=== PATIENT | male | born 1940 | race Caucasian/White ===

== ENCOUNTER 2021-06-17 09:34 | Inpatient (IN) ==
[2021-06-17] MEDS ORDERED: cefTRIAXone 1,000 MG in SODIUM CHLORIDE 0.9% 100 ML IV STA (17:16)
[2021-06-17] MEDS ORDERED: ONDANSETRON 4 MG/2 ML VIAL IV STA (17:20)
[2021-06-17] MEDS ORDERED: METOPROLOL TARTRATE 5 MG/5 ML VIAL IV STA (17:21)
[2021-06-17] MEDS ORDERED: SODIUM CHLORIDE 0.9% 500 ML IV STA (17:30)
[2021-06-17 18:48] LABS: Basophils % 0.3 % (0.0-0.8); Hematocrit 44.4 VOL% (42.0-52.0); Hemoglobin 14.9 GM/DL (14.0-18.0); Lymphocytes # 0.2 10*3/uL (1.4-4.0); Lymphocytes % 2.1 % (21.2-54.2); Mean Corpuscular HGB Conc 33.6 GM/DL (32-36); Mean Corpuscular Volume 96.9 FL (87-102); Mean Platelet Volume 11.1 FL (9.6-12.0); Monocytes % 10.9 % (1.7-12.7); Neutrophils % 86.1 % (38.7-73.9); Platelet Count 124 T/CUMM (130-400); Red Blood Count 4.58 MC/CUMM (3.8-5.5); Red Cell Distribution Width 13.1 % (9.3-17.3); White Blood Count 7.8 T/CUMM (4-12)
[2021-06-17 19:13] LABS: Alanine Aminotransferase 19 U/L (16-61); Albumin 3.2 G/DL (3.4-5.0); Alkaline Phosphatase 64 U/L (45-117); Aspartate Amino Transferase 18 U/L (0-37); Blood Urea Nitrogen 19 MG/DL (7-18); Calcium 8.3 MG/DL (8.5-10.1); Carbon Dioxide 24 MMOL/L (21-32); Estimated Glom Filtration Rate 73 ML/MIN; Glucose 139 MG/DL (74-106); Osmolality,Calculated 271.2 MOS/KG (273-304); Potassium 3.7 MMOL/L (3.5-5.1); Sodium 134 MMOL/L (136-145); Total Protein 7.2 G/DL (6.4-8.2)
[2021-06-17] MEDS ORDERED: SODIUM CHLORIDE 0.9% 1,000 ML IV STA (19:22)
[2021-06-17] MEDS ORDERED: AZITHROMYCIN INJ 500 MG in SODIUM CHLORIDE 0.9% 250 ML IV STA (19:22)
[2021-06-17] MEDS ORDERED: ONDANSETRON 4 MG TABLET PO PRN (19:38)
[2021-06-17] MEDS ORDERED: diphenhydrAMINE 50 MG/1 ML VIAL IV PRN ×2 (19:38)
[2021-06-17] MEDS ORDERED: diphenhydrAMINE CAP 50 MG CAPSULE PO PRN (19:38)
[2021-06-17] MEDS ORDERED: MECLIZINE 25 MG TABLET PO PRN (19:38)
[2021-06-17] MEDS ORDERED: diphenhydrAMINE CAP 25 MG CAPSULE PO PRN (19:38)
[2021-06-17] MEDS ORDERED: methylPREDNISolone SOD SUC 125 MG/2 ML VIAL IV PRN (19:38)
[2021-06-17] MEDS ORDERED: CASIRIVIMAB/IMDEVIMAB 1,200 MG in SODIUM CHLORIDE 0.9% 100 ML IV ONE (19:38)
[2021-06-17] MEDS ORDERED: ACETAMINOPHEN 325 MG TABLET PO PRN ×2 (19:38→22:30)
[2021-06-17] MEDS ORDERED: methylPREDNISolone SOD SUC 125 MG/2 ML VIAL IM PRN (19:38)
[2021-06-17] MEDS ORDERED: ONDANSETRON 4 MG/2 ML VIAL IV PRN ×2 (19:38→22:30)
[2021-06-17] MEDS ORDERED: PROMETHAZINE INJ 12.5 MG in SODIUM CHLORIDE 0.9% 50 ML IV STA (19:47)
[2021-06-17] MEDS ORDERED: DEXAMETHASONE 4 MG/1 ML VIAL IV STA (19:59)
[2021-06-17 20:43] LABS: ABG Base Excess -0.1 MMOL/L (-2.5-2.5); ABG HCO3 24.2 MMOL/L (20-26); ABG PCO2 38.1 MM HG (35-48); ABG PH 7.412 (7.35-7.45); ABG TCO2 21.1 MMOL/L (23-27); Allen Test Positive
[2021-06-17] MEDS ORDERED: ENOXAPARIN 30 MG/0.3 ML SYRINGE SUBCUT STA (20:56)
[2021-06-17] MEDS ORDERED: ENOXAPARIN 100 MG/ML SYRINGE SUBCUT STA (20:59)
[2021-06-17] MEDS ORDERED: DEXAMETHASONE 10 MG/1 ML VIAL ONE (22:21)
[2021-06-17] MEDS ORDERED: PROMETHAZINE 25 MG/1 ML VIAL ONE (22:24)
[2021-06-18] MEDS ORDERED: DOCUSATE SODIUM 100 MG CAPSULE PO SCH (09:00)
[2021-06-18] MEDS ORDERED: PANTOPRAZOLE 40 MG TABLET PO SCH (09:00)
[2021-06-18] MEDS ORDERED: ONDANSETRON 4 MG/2 ML VIAL IV PRN (09:27)
[2021-06-18] MEDS ORDERED: ACETAMINOPHEN 325 MG TABLET PO PRN (09:27)
[2021-06-18] MEDS: SODIUM CHLORIDE 0.45% 1,000 ML IV SCH ×3 (10:30→20:30)
[2021-06-18 11:22] LABS: Bilirubin,Urine Negative (Negative); Blood, Urine Moderate mg/dL (Negative); Glucose,Urine (UA) Negative (Negative); Ketones,Urine 5 mg/dL (Negative); Mucus,Urine Occasional /LPF (Occasional); Nitrite,Urine Negative (Negative); Protein,Urine 30 MG/DL; RBC,Urine 7 /HPF (0-4); Urine Appearance CLEAR (Clear); Urine Color Amber (Yellow); Urine Specific Gravity 1.028 (1.001-1.035)
[2021-06-18] MEDS: cefTRIAXone 1,000 MG in SODIUM CHLORIDE 0.9% 100 ML IV SCH (16:30)
[2021-06-18 17:43] VITALS: BP 133/72
[2021-06-18] MEDS: APIXABAN 5 MG TABLET PO SCH (21:20)
[2021-06-18] MEDS: DEXAMETHASONE 4 MG TABLET PO SCH (21:20)
[2021-06-18] MEDS: DOCUSATE SODIUM 100 MG CAPSULE PO SCH (21:20)
[2021-06-19] MEDS: SODIUM CHLORIDE 0.45% 1,000 ML IV SCH ×2 (01:30→08:23)
[2021-06-19 06:30] LABS: Hematocrit 42.6 VOL% (42.0-52.0); Hemoglobin 14.1 GM/DL (14.0-18.0); Immature Granulocytes % 0.6 %; Immature Granulocytes Absolute 0.04 #; Lymphocytes # 0.5 10*3/uL (1.4-4.0); Mean Corpuscular HGB Conc 33.1 GM/DL (32-36); Mean Corpuscular Volume 97.5 FL (87-102); Mean Platelet Volume 11.1 FL (9.6-12.0); Monocytes % 10.5 % (1.7-12.7); Neutrophils % 81.9 % (38.7-73.9); Platelet Count 121 T/CUMM (130-400); Red Blood Count 4.37 MC/CUMM (3.8-5.5); White Blood Count 6.7 T/CUMM (4-12)
[2021-06-19] MEDS: DOCUSATE SODIUM 100 MG CAPSULE PO SCH (08:21)
[2021-06-19] MEDS: DEXAMETHASONE 4 MG TABLET PO SCH (08:22)
[2021-06-19] MEDS: APIXABAN 5 MG TABLET PO SCH (08:22)
[2021-06-19] MEDS ORDERED: CYANOCOBALAMIN COBAMAMIDE SL SCH (09:00)
[2021-06-19] MEDS ORDERED: MULTIVITAMIN (CENTRUM) TABLET PO SCH (09:00)
[2021-06-19] MEDS ORDERED: AZITHROMYCIN 250 MG TABLET PO SCH (09:00)
[2021-06-19] MEDS ORDERED: TAMSULOSIN 0.4 MG CAPSULE PO SCH (09:00)
[2021-06-19] MEDS ORDERED: IVERMECTIN 3 MG TABLET PO SCH (09:00)
[2021-06-19] MEDS ORDERED: ASPIRIN EC 81 MG TABLET PO SCH (09:00)
[2021-06-19] MEDS ORDERED: [UNRECOGNIZED DRUG - OTHER] SL SCH (09:00)
[2021-06-19] MEDS ORDERED: PANTOPRAZOLE 40 MG TABLET PO SCH (09:00)
[2021-06-19] MEDS: cefTRIAXone 1,000 MG in SODIUM CHLORIDE 0.9% 100 ML IV SCH (15:16)
== END 2021-06-19 17:15 | disposition home or self-care (01) | DRG 177 ==
LOC: N.ED 09:34 → N.EDINP 22:26 → N.CC 06-18 17:50
PROVIDERS: ADMIT Internal Medicine; ATTEND Internal Medicine

== ENCOUNTER 2021-11-24 13:22 | Inpatient (IN) ==
[2021-11-24 15:58] LABS: Basophils % 0.1 % (0.0-0.8); Eosinophils % 0.1 % (0.00-10.9); Hematocrit 47.2 VOL% (42.0-52.0); Hemoglobin 15.8 GM/DL (14.0-18.0); Immature Granulocytes % 0.6 %; Immature Granulocytes Absolute 0.06 #; Lymphocytes # 0.9 10*3/uL (1.4-4.0); Lymphocytes % 8.4 % (21.2-54.2); Mean Corpuscular HGB Conc 33.5 GM/DL (32-36); Mean Corpuscular Volume 95.4 FL (87-102); Mean Platelet Volume 10.4 FL (9.6-12.0); Monocytes % 9.8 % (1.7-12.7); Platelet Count 125 T/CUMM (130-400); Red Blood Count 4.95 MC/CUMM (3.8-5.5); Red Cell Distribution Width 13.2 % (9.3-17.3); White Blood Count 10.6 T/CUMM (4-12)
[2021-11-24] MEDS ORDERED: ALUM/MAG/SIMETH/LIDO VISC 1:1 30 ML BOTTLE PO STA (16:02)
[2021-11-24 16:24] LABS: Calcium 8.4 MG/DL (8.5-10.1); Osmolality,Calculated 278.5 MOS/KG (273-304); Potassium 3.9 MMOL/L (3.5-5.1)
[2021-11-24 16:25] LABS: Albumin 3.4 G/DL (3.4-5.0); Bilirubin,Total 11.2 MG/DL (0.20-1.00); Osmolality,Calculated 274.8 MOS/KG (273-304); Potassium 3.8 MMOL/L (3.5-5.1)
[2021-11-24] MEDS ORDERED: ONDANSETRON 4 MG/2 ML VIAL IV STA (19:25)
[2021-11-24] MEDS ORDERED: SODIUM CHLORIDE 0.9% 500 ML IV STA (19:25)
[2021-11-24] MEDS ORDERED: PIPERACILLIN/TAZOBACTAM 3,375 MG in SODIUM CHLORIDE 0.9% 100 ML IV STA (19:27)
[2021-11-24] MEDS ORDERED: PANTOPRAZOLE 40 MG VIAL IV STA (19:27)
[2021-11-24] MEDS ORDERED: ACETAMINOPHEN 325 MG TABLET PO PRN (19:32)
[2021-11-24] MEDS ORDERED: ONDANSETRON 4 MG/2 ML VIAL IV PRN (19:32)
[2021-11-24] MEDS ORDERED: HYDROmorphone 1 MG/1 ML SYRINGE IV PRN (19:32)
[2021-11-24] MEDS: DOCUSATE SODIUM 100 MG CAPSULE PO SCH (21:20)
[2021-11-24] MEDS: SODIUM CHLORIDE 0.9% 1,000 ML IV SCH (23:20)
[2021-11-24] MEDS: ENOXAPARIN 30 MG/0.3 ML SYRINGE SUBCUT SCH (23:21)
[2021-11-25 05:46] LABS: Albumin 3.1 G/DL (3.4-5.0); Bilirubin,Total 9.7 MG/DL (0.20-1.00); Calcium 8.2 MG/DL (8.5-10.1); Osmolality,Calculated 275.7 MOS/KG (273-304); Potassium 3.6 MMOL/L (3.5-5.1); Total Protein 6.2 G/DL (6.4-8.2)
[2021-11-25] MEDS ORDERED: PANTOPRAZOLE 40 MG TABLET PO SCH (09:00)
[2021-11-25] MEDS: METOPROLOL SUCCINATE XL 25 MG TABLET PO SCH (09:13)
[2021-11-25] MEDS: LEVOTHYROXINE 50 MCG TABLET PO SCH (09:13)
[2021-11-25] MEDS: TAMSULOSIN 0.4 MG CAPSULE PO SCH (09:13)
[2021-11-25] MEDS: DOCUSATE SODIUM 100 MG CAPSULE PO SCH ×2 (09:13→21:16)
[2021-11-25] MEDS: SODIUM CHLORIDE 0.9% 1,000 ML IV SCH ×2 (09:14→18:47)
[2021-11-25] MEDS: PANTOPRAZOLE 40 MG VIAL IV SCH (09:14)
[2021-11-25] MEDS: PIPERACILLIN/TAZOBACTAM 3,375 MG in SODIUM CHLORIDE 0.9% 100 ML IV SCH ×2 (10:45→18:30)
[2021-11-25] MEDS: ENOXAPARIN 30 MG/0.3 ML SYRINGE SUBCUT SCH (23:16)
[2021-11-26] MEDS: PIPERACILLIN/TAZOBACTAM 3,375 MG in SODIUM CHLORIDE 0.9% 100 ML IV SCH ×3 (03:58→17:35)
[2021-11-26] MEDS: SODIUM CHLORIDE 0.9% 1,000 ML IV SCH ×3 (04:00→23:30)
[2021-11-26 08:39] LABS: Basophils % 0.6 % (0.0-0.8); Eosinophils # 0.1 10*3/uL (0.0-0.87); Eosinophils % 1.1 % (0.00-10.9); Hematocrit 42.9 VOL% (42.0-52.0); Hemoglobin 14.3 GM/DL (14.0-18.0); Immature Granulocytes % 0.6 %; Immature Granulocytes Absolute 0.03 #; Lymphocytes # 0.9 10*3/uL (1.4-4.0); Lymphocytes % 16.5 % (21.2-54.2); Mean Corpuscular HGB Conc 33.3 GM/DL (32-36); Mean Corpuscular Volume 97.3 FL (87-102); Mean Platelet Volume 10.7 FL (9.6-12.0); Monocytes # 1.1 10*3/uL (0.11-0.8); Monocytes % 19.5 % (1.7-12.7); Neutrophils % 61.7 % (38.7-73.9); Platelet Count 125 T/CUMM (130-400); Red Blood Count 4.41 MC/CUMM (3.8-5.5); Red Cell Distribution Width 13.2 % (9.3-17.3); White Blood Count 5.4 T/CUMM (4-12)
[2021-11-26] MEDS: METOPROLOL SUCCINATE XL 25 MG TABLET PO SCH (08:54)
[2021-11-26] MEDS: DOCUSATE SODIUM 100 MG CAPSULE PO SCH ×2 (08:54→20:59)
[2021-11-26] MEDS: PANTOPRAZOLE 40 MG VIAL IV SCH (08:54)
[2021-11-26] MEDS: LEVOTHYROXINE 50 MCG TABLET PO SCH (08:54)
[2021-11-26] MEDS: TAMSULOSIN 0.4 MG CAPSULE PO SCH (08:54)
[2021-11-26 08:58] LABS: Albumin 2.7 G/DL (3.4-5.0); Bilirubin,Total 7.9 MG/DL (0.20-1.00); Calcium 7.9 MG/DL (8.5-10.1); Osmolality,Calculated 281.3 MOS/KG (273-304); Potassium 3.5 MMOL/L (3.5-5.1); Total Protein 5.9 G/DL (6.4-8.2)
[2021-11-26 08:59] LABS: Band Neutrophils 2 % (0-10); Eosinophils 2 % (0-10); Lymphocytes 18 % (20-55); Total Cells Counted 100
[2021-11-26 09:00] LABS: Platelet Estimate Adequate
[2021-11-26] MEDS: ENOXAPARIN 30 MG/0.3 ML SYRINGE SUBCUT SCH (21:00)
[2021-11-27] MEDS: PIPERACILLIN/TAZOBACTAM 3,375 MG in SODIUM CHLORIDE 0.9% 100 ML IV SCH ×3 (03:34→18:12)
[2021-11-27] MEDS: LEVOTHYROXINE 50 MCG TABLET PO SCH (06:27)
[2021-11-27 06:35] LABS: Basophils % 0.7 % (0.0-0.8); Eosinophils # 0.2 10*3/uL (0.0-0.87); Eosinophils % 4.6 % (0.00-10.9); Hematocrit 41.8 VOL% (42.0-52.0); Hemoglobin 13.9 GM/DL (14.0-18.0); Immature Granulocytes % 0.2 %; Immature Granulocytes Absolute 0.01 #; Lymphocytes % 22.6 % (21.2-54.2); Mean Corpuscular HGB Conc 33.3 GM/DL (32-36); Mean Corpuscular Volume 96.5 FL (87-102); Monocytes # 0.6 10*3/uL (0.11-0.8); Monocytes % 14.6 % (1.7-12.7); Neutrophils % 57.3 % (38.7-73.9); Platelet Count 131 T/CUMM (130-400); Red Blood Count 4.33 MC/CUMM (3.8-5.5); Red Cell Distribution Width 13.3 % (9.3-17.3); White Blood Count 4.4 T/CUMM (4-12)
[2021-11-27 07:04] LABS: Albumin 2.5 G/DL (3.4-5.0); Bilirubin,Total 5.1 MG/DL (0.20-1.00); Potassium 3.6 MMOL/L (3.5-5.1); Total Protein 5.5 G/DL (6.4-8.2)
[2021-11-27] MEDS: TAMSULOSIN 0.4 MG CAPSULE PO SCH (09:54)
[2021-11-27] MEDS: PANTOPRAZOLE 40 MG VIAL IV SCH (09:54)
[2021-11-27] MEDS: METOPROLOL SUCCINATE XL 25 MG TABLET PO SCH (09:54)
[2021-11-27] MEDS: DOCUSATE SODIUM 100 MG CAPSULE PO SCH ×3 (09:54→20:57)
[2021-11-27] MEDS: SODIUM CHLORIDE 0.9% 1,000 ML IV SCH (15:59)
[2021-11-28] MEDS: SODIUM CHLORIDE 0.9% 1,000 ML IV SCH ×2 (02:12→16:15)
[2021-11-28] MEDS: PIPERACILLIN/TAZOBACTAM 3,375 MG in SODIUM CHLORIDE 0.9% 100 ML IV SCH ×3 (03:11→18:47)
[2021-11-28 04:51] LABS: Basophils % 0.6 % (0.0-0.8); Eosinophils # 0.3 10*3/uL (0.0-0.87); Eosinophils % 4.9 % (0.00-10.9); Hematocrit 41.5 VOL% (42.0-52.0); Hemoglobin 13.8 GM/DL (14.0-18.0); Immature Granulocytes % 0.2 %; Immature Granulocytes Absolute 0.01 #; Lymphocytes # 1.2 10*3/uL (1.4-4.0); Lymphocytes % 21.7 % (21.2-54.2); Mean Corpuscular HGB Conc 33.3 GM/DL (32-36); Mean Corpuscular Volume 95.6 FL (87-102); Mean Platelet Volume 10.5 FL (9.6-12.0); Monocytes # 0.7 10*3/uL (0.11-0.8); Neutrophils % 59.6 % (38.7-73.9); Platelet Count 148 T/CUMM (130-400); Red Blood Count 4.34 MC/CUMM (3.8-5.5); White Blood Count 5.3 T/CUMM (4-12)
[2021-11-28 05:14] LABS: Albumin 2.4 G/DL (3.4-5.0); Bilirubin,Total 4.3 MG/DL (0.20-1.00); Calcium 7.9 MG/DL (8.5-10.1); Osmolality,Calculated 279.1 MOS/KG (273-304); Potassium 3.3 MMOL/L (3.5-5.1); Total Protein 5.5 G/DL (6.4-8.2)
[2021-11-28] MEDS: LEVOTHYROXINE 50 MCG TABLET PO SCH (06:26)
[2021-11-28 07:10] LABS: INR 1.1; PT Patient Result 12.1 SECS (10.5-12.0)
[2021-11-28] MEDS ORDERED: INDOMETHACIN SUPP 50 MG SUPP RECTAL ONE (07:20)
[2021-11-28] MEDS: PANTOPRAZOLE 40 MG VIAL IV SCH (08:05)
[2021-11-28] MEDS: DOCUSATE SODIUM 100 MG CAPSULE PO SCH ×2 (08:05→20:42)
[2021-11-28] MEDS: TAMSULOSIN 0.4 MG CAPSULE PO SCH (08:05)
[2021-11-28] MEDS: METOPROLOL SUCCINATE XL 25 MG TABLET PO SCH (08:05)
[2021-11-28] MEDS ORDERED: LACTATED RINGERS 1,000 ML IV SCH (10:00)
[2021-11-28] MEDS ORDERED: LIDOCAINE 2% 5 ML VIAL ONE (13:10)
[2021-11-28] MEDS ORDERED: fentaNYL 100 MCG/2 ML VIAL ONE (13:10)
[2021-11-28] MEDS ORDERED: SUCCINYLCHOLINE 200 MG/10 ML VIAL ONE (13:10)
[2021-11-28] MEDS ORDERED: ROCURONIUM 50 MG/5 ML VIAL IV ONE (13:10)
[2021-11-28] MEDS ORDERED: ONDANSETRON 4 MG/2 ML VIAL ONE (13:10)
[2021-11-28] MEDS ORDERED: propofoL 200 MG/20 ML VIAL IV ONE (13:10)
[2021-11-28] MEDS: INDOMETHACIN SUPP 50 MG SUPP RECTAL ONE ×2 (13:30→14:42)
[2021-11-28] MEDS ORDERED: SEVOFLURANE 1 UNIT/15 MINUTE INH ONE (14:26)
[2021-11-28] MEDS: POTASSIUM CHLORIDE RIDER 10 MEQ/100 ML PREMIX IV PRN (23:46)
[2021-11-29] MEDS: POTASSIUM CHLORIDE RIDER 10 MEQ/100 ML PREMIX IV PRN ×2 (01:24→03:08)
[2021-11-29] MEDS: SODIUM CHLORIDE 0.9% 1,000 ML IV SCH ×2 (01:25→14:40)
[2021-11-29] MEDS: PIPERACILLIN/TAZOBACTAM 3,375 MG in SODIUM CHLORIDE 0.9% 100 ML IV SCH ×3 (01:30→17:41)
[2021-11-29 05:05] LABS: Basophils % 0.4 % (0.0-0.8); Eosinophils # 0.3 10*3/uL (0.0-0.87); Eosinophils % 5.7 % (0.00-10.9); Hematocrit 41.1 VOL% (42.0-52.0); Hemoglobin 13.5 GM/DL (14.0-18.0); Immature Granulocytes % 0.7 %; Immature Granulocytes Absolute 0.03 #; Lymphocytes # 1.2 10*3/uL (1.4-4.0); Lymphocytes % 25.8 % (21.2-54.2); Mean Corpuscular HGB Conc 32.8 GM/DL (32-36); Mean Corpuscular Volume 96.5 FL (87-102); Mean Platelet Volume 10.7 FL (9.6-12.0); Monocytes # 0.6 10*3/uL (0.11-0.8); Monocytes % 13.9 % (1.7-12.7); Neutrophils % 53.5 % (38.7-73.9); Platelet Count 148 T/CUMM (130-400); Red Blood Count 4.26 MC/CUMM (3.8-5.5); Red Cell Distribution Width 13.1 % (9.3-17.3); White Blood Count 4.5 T/CUMM (4-12)
[2021-11-29 05:22] LABS: Albumin 2.3 G/DL (3.4-5.0); Bilirubin,Total 3.8 MG/DL (0.20-1.00); Calcium 7.8 MG/DL (8.5-10.1); Potassium 4.2 MMOL/L (3.5-5.1); Total Protein 5.4 G/DL (6.4-8.2)
[2021-11-29] MEDS: LEVOTHYROXINE 50 MCG TABLET PO SCH (06:07)
[2021-11-29] MEDS: DOCUSATE SODIUM 100 MG CAPSULE PO SCH ×2 (08:40→21:17)
[2021-11-29] MEDS: PANTOPRAZOLE 40 MG VIAL IV SCH (08:40)
[2021-11-29] MEDS: METOPROLOL SUCCINATE XL 25 MG TABLET PO SCH (08:40)
[2021-11-29] MEDS: TAMSULOSIN 0.4 MG CAPSULE PO SCH (08:40)
[2021-11-29] MEDS ORDERED: POTASSIUM CHLORIDE 20 MEQ TABLET PO SCH (09:00)
[2021-11-29] MEDS ORDERED: TISSUE ADHESIVE 1 EACH APPLICATOR TOP ONE (10:02)
[2021-11-29] MEDS ORDERED: fentaNYL 100 MCG/2 ML VIAL ONE ×2 (10:08→11:58)
[2021-11-29] MEDS ORDERED: propofoL 200 MG/20 ML VIAL IV ONE (10:10)
[2021-11-29] MEDS ORDERED: ONDANSETRON 4 MG/2 ML VIAL ONE (10:10)
[2021-11-29] MEDS ORDERED: LIDOCAINE 2% 5 ML VIAL ONE (10:10)
[2021-11-29] MEDS ORDERED: ROCURONIUM 50 MG/5 ML VIAL IV ONE (10:10)
[2021-11-29] MEDS ORDERED: PHENYLEPHRINE 1 MG/10 ML SYRINGE IV ONE (11:48)
[2021-11-29] MEDS ORDERED: diphenhydrAMINE 50 MG/1 ML VIAL IV PRN (12:17)
[2021-11-29] MEDS ORDERED: HYDROmorphone 1 MG/1 ML SYRINGE IV PRN (12:17)
[2021-11-29] MEDS ORDERED: ONDANSETRON 4 MG/2 ML VIAL IV PRN (12:17)
[2021-11-29] MEDS ORDERED: MEPERIDINE 25 MG/1 ML VIAL IV PRN (12:17)
[2021-11-29] MEDS ORDERED: PROMETHAZINE INJ 25 MG in SODIUM CHLORIDE 0.9% 50 ML IV PRN (12:17)
[2021-11-29] MEDS ORDERED: ESMOLOL 100 MG/10 ML VIAL IV ONE (12:29)
[2021-11-29] MEDS ORDERED: SEVOFLURANE 1 UNIT/15 MINUTE INH ONE ×4 (12:52→13:46)
[2021-11-29] MEDS ORDERED: NEOSTIGMINE 10 MG/10 ML VIAL ONE (13:00)
[2021-11-29] MEDS ORDERED: GLYCOPYRROLATE 0.4 MG/2 ML VIAL ONE (13:00)
[2021-11-29] MEDS ORDERED: LACTATED RINGERS 1,000 ML IV ONE (13:42)
[2021-11-29] MEDS: ENOXAPARIN 30 MG/0.3 ML SYRINGE SUBCUT SCH (21:17)
[2021-11-30] MEDS: PIPERACILLIN/TAZOBACTAM 3,375 MG in SODIUM CHLORIDE 0.9% 100 ML IV SCH ×3 (01:43→17:45)
[2021-11-30 05:35] LABS: Basophils % 0.1 % (0.0-0.8); Eosinophils % 0.1 % (0.00-10.9); Hematocrit 43.1 VOL% (42.0-52.0); Hemoglobin 14.4 GM/DL (14.0-18.0); Immature Granulocytes % 0.5 %; Immature Granulocytes Absolute 0.05 #; Lymphocytes % 11.1 % (21.2-54.2); Mean Corpuscular HGB Conc 33.4 GM/DL (32-36); Mean Corpuscular Volume 94.9 FL (87-102); Mean Platelet Volume 10.1 FL (9.6-12.0); Monocytes # 1.1 10*3/uL (0.11-0.8); Monocytes % 11.7 % (1.7-12.7); Neutrophils % 76.5 % (38.7-73.9); Platelet Count 189 T/CUMM (130-400); Red Blood Count 4.54 MC/CUMM (3.8-5.5); Red Cell Distribution Width 13.2 % (9.3-17.3); White Blood Count 9.2 T/CUMM (4-12)
[2021-11-30 05:51] LABS: Albumin 2.5 G/DL (3.4-5.0); Bilirubin,Total 2.9 MG/DL (0.20-1.00); Calcium 7.7 MG/DL (8.5-10.1); Osmolality,Calculated 277.5 MOS/KG (273-304); Potassium 3.5 MMOL/L (3.5-5.1); Total Protein 5.6 G/DL (6.4-8.2)
[2021-11-30] MEDS: LEVOTHYROXINE 50 MCG TABLET PO SCH (05:52)
[2021-11-30] MEDS ORDERED: MAGNESIUM SULF RIDER 2 GM/50 ML PREMIX IV ONE (06:15)
[2021-11-30] MEDS: SODIUM CHLORIDE 0.9% 1,000 ML IV SCH ×3 (07:34→15:09)
[2021-11-30] MEDS: PANTOPRAZOLE 40 MG VIAL IV SCH (08:13)
[2021-11-30] MEDS: TAMSULOSIN 0.4 MG CAPSULE PO SCH (08:13)
[2021-11-30] MEDS: METOPROLOL SUCCINATE XL 25 MG TABLET PO SCH (08:13)
[2021-11-30] MEDS: DOCUSATE SODIUM 100 MG CAPSULE PO SCH ×2 (08:13→21:43)
[2021-11-30] MEDS ORDERED: MAGNESIUM HYDROXIDE SUSP 30 ML UDCUP PO PRN (13:27)
[2021-11-30] MEDS: ENOXAPARIN 30 MG/0.3 ML SYRINGE SUBCUT SCH (21:43)
[2021-12-01] MEDS: PIPERACILLIN/TAZOBACTAM 3,375 MG in SODIUM CHLORIDE 0.9% 100 ML IV SCH ×3 (01:56→18:03)
[2021-12-01 04:40] LABS: Basophils % 0.1 % (0.0-0.8); Eosinophils % 0.2 % (0.00-10.9); Hemoglobin 13.4 GM/DL (14.0-18.0); Immature Granulocytes % 0.7 %; Immature Granulocytes Absolute 0.07 #; Lymphocytes # 0.9 10*3/uL (1.4-4.0); Lymphocytes % 8.7 % (21.2-54.2); Mean Corpuscular HGB Conc 33.5 GM/DL (32-36); Mean Corpuscular Volume 95.7 FL (87-102); Mean Platelet Volume 10.3 FL (9.6-12.0); Monocytes % 10.1 % (1.7-12.7); Neutrophils % 80.2 % (38.7-73.9); Platelet Count 188 T/CUMM (130-400); Red Blood Count 4.18 MC/CUMM (3.8-5.5); Red Cell Distribution Width 13.5 % (9.3-17.3); White Blood Count 9.8 T/CUMM (4-12)
[2021-12-01 05:03] LABS: Albumin 2.3 G/DL (3.4-5.0); Bilirubin,Total 2.1 MG/DL (0.20-1.00); Calcium 7.8 MG/DL (8.5-10.1); Osmolality,Calculated 278.5 MOS/KG (273-304); Potassium 3.5 MMOL/L (3.5-5.1); Total Protein 5.4 G/DL (6.4-8.2)
[2021-12-01] MEDS: LEVOTHYROXINE 50 MCG TABLET PO SCH (05:30)
[2021-12-01] MEDS: SODIUM CHLORIDE 0.9% 1,000 ML IV SCH (07:45)
[2021-12-01] MEDS: PANTOPRAZOLE 40 MG TABLET PO SCH (08:22)
[2021-12-01] MEDS: TAMSULOSIN 0.4 MG CAPSULE PO SCH (08:22)
[2021-12-01] MEDS: DOCUSATE SODIUM 100 MG CAPSULE PO SCH ×2 (08:22→20:48)
[2021-12-01] MEDS: METOPROLOL SUCCINATE XL 25 MG TABLET PO SCH (08:22)
[2021-12-01] MEDS: ENOXAPARIN 30 MG/0.3 ML SYRINGE SUBCUT SCH (21:10)
[2021-12-02] MEDS: SODIUM CHLORIDE 0.9% 1,000 ML IV SCH ×3 (01:03→10:06)
[2021-12-02] MEDS: PIPERACILLIN/TAZOBACTAM 3,375 MG in SODIUM CHLORIDE 0.9% 100 ML IV SCH ×3 (02:00→18:13)
[2021-12-02 05:40] LABS: Basophils % 0.2 % (0.0-0.8); Eosinophils # 0.2 10*3/uL (0.0-0.87); Eosinophils % 2.3 % (0.00-10.9); Hematocrit 38.2 VOL% (42.0-52.0); Hemoglobin 12.5 GM/DL (14.0-18.0); Immature Granulocytes % 0.6 %; Immature Granulocytes Absolute 0.05 #; Lymphocytes # 1.2 10*3/uL (1.4-4.0); Lymphocytes % 14.7 % (21.2-54.2); Mean Corpuscular HGB Conc 32.7 GM/DL (32-36); Mean Corpuscular Volume 97.2 FL (87-102); Mean Platelet Volume 10.5 FL (9.6-12.0); Monocytes # 0.8 10*3/uL (0.11-0.8); Neutrophils % 72.2 % (38.7-73.9); Platelet Count 207 T/CUMM (130-400); Red Blood Count 3.93 MC/CUMM (3.8-5.5); Red Cell Distribution Width 13.5 % (9.3-17.3); White Blood Count 8.4 T/CUMM (4-12)
[2021-12-02 05:59] LABS: Bilirubin,Total 2.1 MG/DL (0.20-1.00); Calcium 7.8 MG/DL (8.5-10.1); Potassium 3.7 MMOL/L (3.5-5.1); Total Protein 5.2 G/DL (6.4-8.2)
[2021-12-02] MEDS: LEVOTHYROXINE 50 MCG TABLET PO SCH (06:00)
[2021-12-02 07:39] LABS: Platelet Estimate Normal
[2021-12-02] MEDS: TAMSULOSIN 0.4 MG CAPSULE PO SCH (08:29)
[2021-12-02] MEDS: METOPROLOL SUCCINATE XL 25 MG TABLET PO SCH (08:29)
[2021-12-02] MEDS: PANTOPRAZOLE 40 MG TABLET PO SCH (08:30)
[2021-12-02] MEDS: DOCUSATE SODIUM 100 MG CAPSULE PO SCH ×2 (08:30→20:55)
[2021-12-02] MEDS: BENZONATATE 100 MG CAPSULE PO SCH ×2 (12:43→20:55)
[2021-12-02] MEDS: ALBUTEROL/IPRATROPIUM 3 ML NEB RESP TX SCH ×4 (12:53→22:30)
[2021-12-02] MEDS: ENOXAPARIN 30 MG/0.3 ML SYRINGE SUBCUT SCH (21:17)
[2021-12-03] MEDS: PIPERACILLIN/TAZOBACTAM 3,375 MG in SODIUM CHLORIDE 0.9% 100 ML IV SCH ×3 (01:30→20:45)
[2021-12-03] MEDS: ALBUTEROL/IPRATROPIUM 3 ML NEB RESP TX SCH ×5 (03:30→19:49)
[2021-12-03 05:35] LABS: Basophils % 0.3 % (0.0-0.8); Eosinophils # 0.1 10*3/uL (0.0-0.87); Eosinophils % 1.2 % (0.00-10.9); Hematocrit 37.5 VOL% (42.0-52.0); Hemoglobin 12.2 GM/DL (14.0-18.0); Immature Granulocytes % 0.7 %; Immature Granulocytes Absolute 0.05 #; Lymphocytes # 1.4 10*3/uL (1.4-4.0); Lymphocytes % 19.1 % (21.2-54.2); Mean Corpuscular HGB Conc 32.5 GM/DL (32-36); Mean Corpuscular Volume 96.4 FL (87-102); Mean Platelet Volume 10.3 FL (9.6-12.0); Monocytes # 0.7 10*3/uL (0.11-0.8); Monocytes % 9.1 % (1.7-12.7); Neutrophils % 69.6 % (38.7-73.9); Platelet Count 241 T/CUMM (130-400); Red Blood Count 3.89 MC/CUMM (3.8-5.5); Red Cell Distribution Width 13.6 % (9.3-17.3); White Blood Count 7.5 T/CUMM (4-12)
[2021-12-03 06:02] LABS: Albumin 2.1 G/DL (3.4-5.0); Bilirubin,Total 1.9 MG/DL (0.20-1.00); Calcium 7.9 MG/DL (8.5-10.1); Osmolality,Calculated 284.8 MOS/KG (273-304); Potassium 2.9 MMOL/L (3.5-5.1); Total Protein 5.4 G/DL (6.4-8.2)
[2021-12-03] MEDS: LEVOTHYROXINE 50 MCG TABLET PO SCH (06:06)
[2021-12-03] MEDS: PANTOPRAZOLE 40 MG TABLET PO SCH (08:51)
[2021-12-03] MEDS: BENZONATATE 100 MG CAPSULE PO SCH ×2 (08:51→20:23)
[2021-12-03] MEDS: METOPROLOL SUCCINATE XL 25 MG TABLET PO SCH (08:51)
[2021-12-03] MEDS: DOCUSATE SODIUM 100 MG CAPSULE PO SCH ×2 (08:51→20:22)
[2021-12-03] MEDS: TAMSULOSIN 0.4 MG CAPSULE PO SCH (08:51)
[2021-12-03] MEDS: POTASSIUM CHLORIDE RIDER 10 MEQ/100 ML PREMIX IV PRN ×5 (11:05→15:30)
[2021-12-03] MEDS ORDERED: MAGNESIUM SULF RIDER 4 GM/100 ML PREMIX IV PRN (12:22)
[2021-12-03] MEDS ORDERED: MAGNESIUM SULF RIDER 2 GM/50 ML PREMIX IV PRN (12:22)
[2021-12-03] MEDS ORDERED: POTASSIUM CHLORIDE RIDER 10 MEQ/100 ML PREMIX IV PRN (12:22)
[2021-12-03] MEDS: SODIUM CHLORIDE 0.9% 1,000 ML IV SCH (20:30)
[2021-12-03] MEDS: ENOXAPARIN 30 MG/0.3 ML SYRINGE SUBCUT SCH (21:29)
[2021-12-04] MEDS: ALBUTEROL/IPRATROPIUM 3 ML NEB RESP TX SCH ×4 (00:54→13:18)
[2021-12-04 05:22] LABS: Potassium 3.6 MMOL/L (3.5-5.1)
[2021-12-04] MEDS: PIPERACILLIN/TAZOBACTAM 3,375 MG in SODIUM CHLORIDE 0.9% 100 ML IV SCH ×2 (06:00→12:30)
[2021-12-04] MEDS: LEVOTHYROXINE 50 MCG TABLET PO SCH (06:01)
[2021-12-04] MEDS: BENZONATATE 100 MG CAPSULE PO SCH (08:09)
[2021-12-04] MEDS: TAMSULOSIN 0.4 MG CAPSULE PO SCH (08:09)
[2021-12-04] MEDS: DOCUSATE SODIUM 100 MG CAPSULE PO SCH (08:09)
[2021-12-04] MEDS: PANTOPRAZOLE 40 MG TABLET PO SCH (08:09)
[2021-12-04] MEDS: METOPROLOL SUCCINATE XL 25 MG TABLET PO SCH (08:09)
[2021-12-04 16:39] VITALS: BP 135/80
[2021-12-04] MEDS: SODIUM CHLORIDE 0.9% 1,000 ML IV SCH (18:29)
== END 2021-12-04 18:00 | disposition home or self-care (01) | DRG 418 ==
LOC: N.ED 13:22 → N.3E 19:32
PROVIDERS: ADMIT Internal Medicine; ATTEND Internal Medicine
PROC: ERCPWSP (ICD-10-PCS; 2021-11-28 13:05)
PROC: LAPCHOL (2021-11-29 11:20)